=== PATIENT | male | born 1985 | race Caucasian/White ===

== ENCOUNTER → 2018-03-11 | Outpatient (CLI) | payer OTHER ==
--- NOTE | 2018-03-11 07:35 | US ---
EXAMINATION TYPE: US liver DATE OF EXAM: 03/11/2018 COMPARISON: NONE CLINICAL HISTORY: R74.8 elevated liver enzymes. EXAM MEASUREMENTS: Liver Length: 12.6 cm Gallbladder Wall: 0.2 cm CBD: 0.3 cm Right Kidney: 10.9 x 5.6 x 4.9 cm Severe midline bowel gas. Pancreas: Obscured by bowel gas Liver: No distinct mass identified. Areas of increased echogenicity within the liver may reflect fatt y liver or diffuse hepatocellular disease. Gallbladder: wnl Evidence for sonographic Keller's sign: No CBD: very limited views Right Kidney: wnl IMPRESSION: 1. Fatty liver versus diffuse hepatocellular disease.
== END | disposition home or self-care (01) ==
LOC: RADUSWWP 06:49
PROVIDERS: ATTEND Family Medicine
DX: K76.0 Fatty (change of) liver, not elsewhere classified (principal)
CPT/HCPCS: 76705

== ENCOUNTER 2020-10-19 07:11 | Emergency (ER) | payer OTHER ==
[2020-10-19 07:28] VITALS: BP 133/56; PULSE 96; RESP 18; TEMP 98.4
[2020-10-19] MEDS ORDERED: ACET/COD 300 MG/30 MG STARTER PACK 6 TAB BTL PO STA (07:34)
--- NOTE | 2020-10-19 07:38 | ED ---
Lower Extremity Injury HPI - General Chief Complaint: Extremity Injury, Lower Stated Complaint: Ankle injury Time Seen by Provider: 10/19/20 07:28 Source: patient, RN notes reviewed, old records reviewed Mode of arrival: wheelchair Limitations: no limitations - History of Present Illness Initial Comments: Patient is a 35-year-old male presents emergency department today for evaluation for complaints of right heel pain. Patient reports that he tripped down the stairs and had one stop with his right heel. He complains of heel pain. Denies any knee pain or back pain. Denies any other complaints. - Related Data Previous Rx's Medication Instructions Recorded Acetaminophen-Codeine 300-30mg 1 tab PO Q6H PRN 3 Days #12 tablet 10/19/20 [Tylenol w/codeine #3] Ibuprofen 600 mg PO Q6H #30 tab 10/19/20 Allergies Allergy/AdvReac Type Severity Reaction Status Date / Time venom-honey bee Allergy Anaphylaxis Verified 10/19/20 07:27 Review of Systems ROS Statement: Those systems with pertinent positive or pertinent negative responses have been documented in the HPI. ROS Other: All systems not noted in ROS Statement are negative. Past Medical History Past Medical History: No Reported History History of Any Multi-Drug Resistant Organisms: None Reported Past Surgical History: No Surgical Hx Reported Past Psychological History: No Psychological Hx Reported Smoking Status: Current every day smoker Past Alcohol Use History: Occasional Past Drug Use History: None Reported General Exam - General Exam Comments Initial Comments: 35-year-old male. Alert and oriented. Limitations: no limitations General appearance: alert, in no apparent distress Head exam: Present: atraumatic, normocephalic, normal inspection Eye exam: Present: normal appearance, PERRL, EOMI. Absent: scleral icterus, conjunctival injection, periorbital swelling ENT exam: Present: normal exam, mucous membranes moist Neck exam: Present: normal inspection. Absent: tenderness, meningismus, lymphadenopathy Respiratory exam: Present: normal lung sounds bilaterally. Absent: respiratory distress, wheezes, rales, rhonchi, stridor Cardiovascular Exam: Present: regular rate, normal rhythm, normal heart sounds. Absent: systolic murmur, diastolic murmur, rubs, gallop, clicks GI/Abdominal exam: Present: soft, normal bowel sounds. Absent: distended, tenderness, guarding, rebound, rigid Extremities exam: Present: normal inspection, full ROM, normal capillary refill. Absent: tenderness, pedal edema, joint swelling, calf tenderness Right Knee exam: Present: normal inspection, full ROM Lower Leg exam: Present: normal inspection, full ROM Ankle exam: Present: full ROM, tenderness (Over right calcaneus). Absent: normal inspection Foot/Toe exam: Present: normal inspection, full ROM Neurovascular tendon exam: Present: no vascular compromise Back exam: Present: normal inspection Neurological exam: Present: alert, oriented X3, CN II-XII intact Course Vital Signs 10/19/20 07:25 Temperature 98.4 F Pulse Rate 96 Respiratory 18 Rate Blood Pressure 133/56 O2 Sat by Pulse 99 Oximetry Procedures - Orthopedic Splinting/Casting Injury #1 Side: right Lower Extremity Injury Location: foot Lower Extremity Immobilizer: posterior splint, Gore dressing Other Orthopedic Equipment: crutches Additional Comments: PT is reevaluated neurovascularly intact Medical Decision Making - Medical Decision Making 35-year-old male presents emergency department today with right heel pain after falling down 4 steps. He reports he had a blunt drop hitting his heel to stop him from falling. Patient at this time has x-rays which show no acute fracture. I did offer the Patient CAT scan due to persistent pain and inability to ambulate he states he prefers to follow-up with [place] and remain splinted at this time and declined the CAT scan. Patient was splinted with a posterior splint. Advised following up with orthopedics this week. All questions answered. - Radiology Data Radiology results: report reviewed R ankle xray shows no Acute fracture dislocation of symptoms persist follow-up in 7 days suggested. No acute fracture or dislocation. If symptoms persist follow up 7 to 10 days could be obtained. Disposition Clinical Impression: Heel pain Disposition: HOME SELF-CARE Condition: Good Instructions (If sedation given, give patient instructions): Calcaneal Fracture (ED) Additional Instructions: Patient advised to rest, ice, elevate the foot. Patient can remain in splint until seen by orthopedic. AMbulate with crutches. Prescriptions: Ibuprofen 600 mg PO Q6H #30 tab Acetaminophen-Codeine 300-30mg [Tylenol w/codeine #3] 1 tab PO Q6H PRN 3 Days #12 tablet PRN Reason: Pain Is patient prescribed a controlled substance at d/c from ED?: Yes If prescribed controlled substance>3 days was MAPS reviewed?: Prescribed <3 Days If opioid is for acute pain is fill amount 7 days or less?: Yes If Rx opioid, was Start Talking consent form obtained?: Yes Referrals: Chuck Michelle MD [Primary Care Provider] - 1-2 days Adam Zhang MD [STAFF PHYSICIAN] - 1-2 days Time of Disposition: 08:24
--- NOTE | 2020-10-19 07:54 | XR ---
EXAMINATION TYPE: XR ankle complete RT DATE OF EXAM: 10/19/2020 COMPARISON: NONE HISTORY: Pain FINDINGS: Three views of the ankle demonstrate the ankle mortise to be intact and symmetric. The joint spaces are preserved. The osseous structures are intact. IMPRESSION: 1. No definite acute fracture or dislocation, if symptoms persist follow-up study in 7 to 10 days wou ld be suggested.
--- NOTE | 2020-10-19 07:56 | XR ---
EXAMINATION TYPE: XR foot complete RT DATE OF EXAM: 10/19/2020 COMPARISON: NONE HISTORY: Pain TECHNIQUE: Three views are submitted. FINDINGS: The osseous structures are intact. There is no acute fracture or dislocation. Joint spaces are p reserved. Hypertrophic change of the head of the first tarsal IMPRESSION: 1. No acute fracture or dislocation. If symptoms persist, follow-up exam in 7 to 10 days could be ob tained.
== END 2020-10-19 08:42 | disposition home or self-care (01) ==
LOC: EC 07:11
DX: S99.821A Other specified injuries of right foot, initial encounter (principal); F17.200 Nicotine dependence, unspecified, uncomplicated; Z91.030 Bee allergy status; W10.9XXA Fall (on) (from) unspecified stairs and steps, initial encounter; Y92.009 Unspecified place in unspecified non-institutional (private) residence as the place of occurrence of the external cause
CPT/HCPCS: 29515; 99284